=== PATIENT | male | born 2000 | race Hispanic/Latino ===

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

== ENCOUNTER 2022-08-01 00:13 | Emergency (ER) | payer MEDICAID, OTHER ==
[~2022-08-01] VITALS: Ht 167.6 cm; Wt 61.0 kg
[2022-08-01 00:51] VITALS: BP 134/86
[2022-08-01] MEDS ORDERED: ACETAMINOPHEN 500 MG TABLET PO ONE (01:00)
[2022-08-01] MEDS ORDERED: IBUPROFEN 600 MG TABLET PO ONE (01:00)
[2022-08-01] MEDS ORDERED: GUAIFENESIN-DM 200/20 MG 10 ML PO ONE (01:00)
[2022-08-01] MEDS ORDERED: D-ME118S47 PO (01:17)
[2022-08-01] MEDS ORDERED: ACET-66 PO (01:17)
[2022-08-01] MEDS ORDERED: OSEL75 PO (01:17)
== END 2022-08-01 01:34 | disposition home or self-care (01) ==
LOC: EDH 00:13
DX: J10.1 Influenza due to other identified influenza virus with other respiratory manifestations (principal)
CPT/HCPCS: 87804; 87880